=== PATIENT | male | born 1970 | race Caucasian/White ===

== ENCOUNTER 2021-05-12 09:45 | Observation (INO) | payer BC, OTHER ==
[2021-05-12 10:19] LABS: #Basophils 0.1 thou/uL (0.0-0.2); #Eosinphils 0.1 thou/uL (0.0-0.7); #Lymphocytes 1.9 thou/uL (1.20-3.40); #Monocytes 0.9 thou/uL (0.11-0.59); #Neutrophils 9.1 thou/uL (1.40-6.50); %Basophils 0.9 % (0.0-1.0); %Lymphocytes 15.3 % (21.0-51.0); %Monocytes 7.5 % (0.0-10.0); %Neutrophils 75.3 % (42.0-75.0); Hemoglobin 16.2 g/dL (14.0-18.0); Mean Corpuscular HGB CONC 31.3 g/dL (32.0-36.0); Mean Corpuscular Hemoglobin 26.8 pg (27.0-31.0); Mean Corpuscular Volume 85.6 fL (78.0-98.0); Platelet Count 190 thou/uL (130-400); RBC Distribution Width 15.7 % (11.5-14.5); Red Blood Cell (RBC) Count 6.03 mill/uL (4.70-6.10); White Blood Cell (WBC) Count 12.1 thou/uL (4.8-10.8)
[2021-05-12 10:39] LABS: ALT (SGPT) 32 U/L (8-55); AST (SGOT) 23 U/L (5-34); Albumin 4.3 g/dL (3.5-5.0); Alkaline Phosphatase 62 U/L (40-110); Anion Gap 16 mmol/L (10-20); BUN (Urea Nitrogen) 11 mg/dL (8.9-20.6); Calc. Creatinine Clearance 0 mL/min (70-130); Calcium 9.9 mg/dL (7.8-10.44); Carbon Dioxide 22 mmol/L (22-29); Chloride 100 mmol/L (98-107); Globulin 3.5 g/dL (2.4-3.5); Glucose 224 mg/dL (70-105); Lipase 45 U/L (8-78); Potassium 4.1 mmol/L (3.5-5.1); Protein, Total 7.8 g/dL (6.0-8.3); Sodium 134 mmol/L (136-145)
[2021-05-12] MEDS ORDERED: Aspirin Chewable 81 MG TAB ONE (10:58)
[2021-05-12 11:00] LABS: CKMB 2.4 ng/mL (0-6.6)
[2021-05-12] MEDS ORDERED: Nitroglycerin 2% Ointment 1 INCH/1 GM Packet ONE (12:49)
[2021-05-12] MEDS ORDERED: Dextrose 50% Abboject 50 ML SYRINGE SLOW IVP PRN (13:20)
[2021-05-12] MEDS ORDERED: Dextrose 5% in Water 1,000 ML IV PRN (13:20)
[2021-05-12] MEDS ORDERED: HumaLOG 300 UNITS/3 ML VIAL SC PRN ×2 (13:20)
[2021-05-12] MEDS ORDERED: Ondansetron ODT 4 MG TAB PO PRN (13:21)
[2021-05-12] MEDS ORDERED: Acetaminophen 325 MG TAB PO PRN (13:21)
[2021-05-12] MEDS ORDERED: Ondansetron PF 4 MG/2 ML Vial IVP PRN (13:21)
[2021-05-12 13:30] LABS: Troponin I 0.032 ng/mL (< 0.028)
[2021-05-12] MEDS ORDERED: Rivaroxaban 10 MG TAB PO SCH (13:30)
[2021-05-12 13:51] LABS: Digoxin 0.26 ng/mL (0.8-2.0)
[2021-05-12] MEDS ORDERED: Digoxin 0.25 MG TAB PO SCH (14:00)
[2021-05-12] MEDS ORDERED: Nicotine 14 MG PATCH TD SCH (14:00)
[2021-05-12] MEDS: Nitroglycerin 2% Ointment 1 INCH/1 GM Packet TOP SCH ×2 (14:22→20:58)
[2021-05-12 14:35] VITALS: BMI 29.4
[2021-05-12] MEDS ORDERED: Sodium Chloride 0.9% 1,000 ML IV SCH (15:00)
[2021-05-12 16:39] LABS: Troponin I 0.037 ng/mL (< 0.028)
[2021-05-12] MEDS ORDERED: Albuterol Sulfate 2.5 mg/3 ml Neb NEB PRN (19:36)
[2021-05-12] MEDS: Famotidine 20 MG TAB PO SCH (20:57)
[2021-05-12 21:35] LABS: Bacteria/HPF None Seen HPF (None Seen); Bilirubin Negative (Negative); Blood, Urine Negative (Negative); Clarity Clear (Clear); Glucose, Urine (Dipstick) 150 mg/dL (Negative); Ketone, Urine Negative (Negative); Leukocyte Negative Leu/uL (Negative); Nitrite Negative (Negative); Protein, Urine (Dipstick) 20 mg/dL (Neg-Trace); RBC/HPF 0-3 HPF (0-3); Specific Gravity, Urine 1.017 (1.002-1.036); Squamous Epithelial None Seen HPF (0-3); Urobilinogen 3 mg/dL (Less than 2); WBC/HPF 0-3 HPF (0-3); pH, Urine 5.5 (5.0-9.0)
[2021-05-12 21:45] LABS: Medtox Reader # READER 4
[2021-05-12] MEDS ORDERED: Furosemide 40 MG TAB PO SCH (21:45)
[2021-05-12 21:46] LABS: Amphetamine Not Detected (NotDetected); Barbiturates Screen Not Detected (NotDetected); Benzodiazepine Screen Not Detected (NotDetected); Cocaine Metabolite Screen Not Detected (NotDetected); Medtox Control Line Valid? VALID (VALID); Methadone Not Detected (NotDetected); Methamphetamine Not Detected (NotDetected); Opiate Screen Not Detected (NotDetected); Oxycodone Screen Not Detected (NotDetected); Phencyclidine (PCP) Not Detected (NotDetected); THC/Cannabinoid Screen Not Detected (NotDetected); Tricyclic Screen Not Detected (NotDetected)
[2021-05-12] MEDS ORDERED: Albuterol 200 PUFF (6.7GM INHALER) INH PRN (21:49)
[2021-05-12] MEDS ORDERED: Gabapentin 300 MG CAP PO SCH (22:00)
[2021-05-12] MEDS ORDERED: Potassium Chloride 20 MEQ TAB PO SCH (22:00)
[2021-05-13 05:01] LABS: #Basophils 0.1 thou/uL (0.0-0.2); #Eosinphils 0.1 thou/uL (0.0-0.7); #Lymphocytes 2.2 thou/uL (1.20-3.40); #Monocytes 1.1 thou/uL (0.11-0.59); #Neutrophils 7.4 thou/uL (1.40-6.50); %Basophils 1.1 % (0.0-1.0); %Eosinophils 1.4 % (0.0-10.0); %Monocytes 10.1 % (0.0-10.0); %Neutrophils 67.4 % (42.0-75.0); Hemoglobin 14.6 g/dL (14.0-18.0); Mean Corpuscular HGB CONC 31.5 g/dL (32.0-36.0); Mean Corpuscular Hemoglobin 26.9 pg (27.0-31.0); Mean Corpuscular Volume 85.5 fL (78.0-98.0); Mean Platelet Volume 10.3 fL (7.4-10.4); Platelet Count 167 thou/uL (130-400); RBC Distribution Width 15.4 % (11.5-14.5); Red Blood Cell (RBC) Count 5.42 mill/uL (4.70-6.10); White Blood Cell (WBC) Count 10.9 thou/uL (4.8-10.8)
[2021-05-13 05:23] LABS: Bilirubin, Direct 0.8 mg/dL (0.1-0.3); Bilirubin, Total 1.9 mg/dL (0.2-1.2)
[2021-05-13 05:30] LABS: Anion Gap 12 mmol/L (10-20); BUN (Urea Nitrogen) 10 mg/dL (8.9-20.6); Calc. Creatinine Clearance 161 mL/min (70-130); Carbon Dioxide 21 mmol/L (22-29); Chloride 105 mmol/L (98-107); Cholesterol 183 mg/dl (< 200 Desired); Glucose 131 mg/dL (70-105); HDL Cholesterol 29 mg/dL (>60 Neg Risk); Potassium 4.2 mmol/L (3.5-5.1); Sodium 134 mmol/L (136-145); Triglycerides 135 mg/dL (Less than 150)
[2021-05-13 05:31] LABS: Cardiac Risk 6.3 (Less than 4.5); LDL Cholesterol, Calculated 127 mg/dL
[2021-05-13] MEDS: Nitroglycerin 2% Ointment 1 INCH/1 GM Packet TOP SCH (06:05)
[2021-05-13] MEDS ORDERED: Sodium Chloride 0.65% Nasal 44 ML BOT EA NARE PRN (07:49)
[2021-05-13] MEDS ORDERED: GUAIFENESIN SF SOLN 200 MG/10 ML UDCUP PO PRN (07:49)
[2021-05-13] MEDS ORDERED: hydrALAZINE 20 MG/ML VIAL SLOW IVP PRN (07:49)
[2021-05-13] MEDS ORDERED: Loratadine 10 MG TAB PO PRN (07:49)
[2021-05-13] MEDS ORDERED: Bisacodyl 5 MG TAB PO PRN (07:49)
[2021-05-13] MEDS ORDERED: Calcium Carbonate 500 MG ChewTAB PO PRN (07:49)
[2021-05-13] MEDS ORDERED: Cepastat Lozenges 1 LOZ PO PRN (07:49)
[2021-05-13] MEDS ORDERED: Loperamide HCl 2 MG CAP PO PRN (07:49)
[2021-05-13] MEDS ORDERED: Senokot S 8.6-50 MG TAB PO PRN (07:49)
[2021-05-13] MEDS ORDERED: Zolpidem Tartrate 5 MG TAB PO PRN (07:49)
[2021-05-13 07:59] VITALS: BP 132/85; TEMP 97.5
[2021-05-13] MEDS ORDERED: Potassium Chloride 20 MEQ TAB PO SCH (08:00)
[2021-05-13] MEDS ORDERED: Rivaroxaban 10 MG TAB PO SCH (09:00)
[2021-05-13] MEDS ORDERED: Non-Formulary Item 1 EACH (Buspirone Hcl [Buspirone Hcl] 7.5 MG Tablet) PO SCH (09:00)
[2021-05-13] MEDS ORDERED: Gabapentin 300 MG CAP PO SCH (09:00)
[2021-05-13] MEDS ORDERED: Non-Formulary Item 1 EACH (Rivaroxaban [Xarelto] 20 MG Tablet) PO SCH (09:00)
[2021-05-13] MEDS ORDERED: busPIRone HCl 5 MG TAB PO SCH (09:00)
[2021-05-13] MEDS ORDERED: Aspirin 81 mg Enteric Coated Tablet PO SCH (09:00)
[2021-05-13] MEDS ORDERED: Furosemide 40 MG TAB PO SCH (09:00)
[2021-05-13] MEDS ORDERED: Atorvastatin Calcium 40 MG TAB PO SCH (09:00)
[2021-05-13] MEDS: Famotidine 20 MG TAB PO SCH (10:12)
== END 2021-05-13 11:35 | disposition home or self-care (01) ==
LOC: ERS 09:45 → 2SW 12:30
PROVIDERS: ADMIT Internal Medicine; ATTEND Internal Medicine
DX: R07.9 Chest pain, unspecified (principal); R00.2 Palpitations; R06.02 Shortness of breath; I48.21 Permanent atrial fibrillation; I25.10 Atherosclerotic heart disease of native coronary artery without angina pectoris; I25.5 Ischemic cardiomyopathy; I11.0 Hypertensive heart disease with heart failure; I50.23 Acute on chronic systolic (congestive) heart failure; J44.9 Chronic obstructive pulmonary disease, unspecified; E11.42 Type 2 diabetes mellitus with diabetic polyneuropathy; E78.5 Hyperlipidemia, unspecified; F17.210 Nicotine dependence, cigarettes, uncomplicated; F15.10 Other stimulant abuse, uncomplicated; R77.8 Other specified abnormalities of plasma proteins; Z79.01 Long term (current) use of anticoagulants; Z79.82 Long term (current) use of aspirin; Z79.84 Long term (current) use of oral hypoglycemic drugs; Z79.899 Other long term (current) drug therapy; Z95.1 Presence of aortocoronary bypass graft; Z95.810 Presence of automatic (implantable) cardiac defibrillator; Z88.5 Allergy status to narcotic agent
CPT/HCPCS: 36415; 36416; 71045; 80048; 80053; 80061; 80162; 80306; 81001; 82247; 82553; 83690; 83735; 83880; 84443; 84484; 85025; 93005; 93010; 93306; 94640; G0378; J7611; Q0162